=== PATIENT | female | born 1965 | race Asian ===

== ENCOUNTER 2016-09-21 16:36 | Outpatient (CLI) | payer OTHER ==
--- NOTE | 2016-09-22 12:03 | Diagnostic Imaging Report ---
Chest x-ray single view History: Cough The heart size is normal. No focal pulmonary parenchymal processes. No hilar or mediastinal abnormalities. Impression: No acute abnormalities
== END 2016-09-21 16:50 | disposition home or self-care (01) ==
LOC: RAD 16:36
PROVIDERS: ATTEND Specialist
DX: R05 Cough (principal)
CPT/HCPCS: 71010-TC

== ENCOUNTER 2017-05-23 11:57 | Inpatient (IN) | payer OTHER ==
--- NOTE | 2017-05-23 12:31 | ED Physician Chart ---
ED Chief Complaint/HPI - Patient Information Date Seen:: 05/23/17 Time Seen:: 12:20 Chief Complaint:: pain left upper leg History of Present Illness:: Patient has had pain in her left upper leg for 5-6 days and lesser pain in the right upper leg. She denies trauma. She flew back from the [facility] 2016. No chest pain or shortness of breath. Patient is on Norvasc 10 mg a day and atenolol 25 mg a day. She has had a potassium as low as 2.6 in the past. Allergies:: Allergies Allergy/AdvReac Type Severity Reaction Status Date / Time No Known Allergies Allergy Verified 05/23/17 12:01 Vitals:: Vital Signs - 8 hr 05/23/17 12:00 Temp 97.4 F HR 87 RR 16 BP 130/79 O2 Sat % 100 Historian:: Patient Review:: Nurse's Note Reviewed ED Review of Systems - Review of Systems General/Constitutional: No fever, No chills Skin: No skin lesions Head: No headache Eyes: No loss of vision ENT: No earache Neck: No neck pain Cardio Vascular: No chest pain Pulmonary: No SOB GI: No nausea, No vomiting G/U: No dysuria, No frequency, No hematuria Musculoskeletal: Bone or joint pain, Muscle pain Endocrine: No polyuria, No polydipsia Psychiatric: No prior psych history Hematopoietic: No bruising, No lymphadenopathy Allergic/Immuno: No urticaria, No angioedema Neurological: No syncope, No focal symptoms ED Past Medical History - Past Medical History Past Medical History: HTN, Asthma/COPD, PUD/GERD, Other (environmental allergies ) Family History: Heart disease, HTN, Other (COPD) Social History: Non Smoker, No Alcohol Surgical History: (2 sections and thyroidectomy) Psychiatricy History: None Medication: Reviewed Family Medical History - Family Member Mother History Unknown: Yes ED Physical Exam - Physical Examination General/Constitutional: Well-developed, well-nourished, Alert, No distress Head: Atraumatic Eyes: Lids, conjuctiva normal, PERRL Skin: Nl inspection, No rash, No skin lesions, No ecchymosis, Well hydrated ENMT: External ears, nose nl, TM canals nl, Nasal exam nl, Lips, teeth, gums nl , Oropharynx nl, Tonsils nl Neck: No nuchal rigidity Respiratory: Nl effort/Exclusion, Clear to Auscultation, No Wheeze/Rhonchi/Rales Cardio Vascular: RRR, No murmur, gallop, rubs, NL S1 S2 GI: No tenderness/rebounding/guarding, No organomegaly, No hernia, Normal BS's, Nondistended, No mass/bruits, No McBurney tenderness : No CVA tenderness Other Extremities comments:: Mild tenderness both thighs; no redness or swelling of the thighs Neuro/Psych: Alert/oriented, No focal deficits Misc: Normal back ED Labs/Radiology/EKG Results - EKG Interpretations Rate & Rhythm: NSR; rate 61; normal axis; T wave flattening V1-V3 ED Septic Shock - . Is Septic Shock (SBP<90, OR Lactate>4 mmol\L) present?: No - <6hrs of presentation: Vital Signs: Vital Signs - 8 hr // 12:00 Temp 97.4 F HR 87 RR 16 BP 130/79 O2 Sat % 100 ED Reassessment (Disposition) - Reassessment Reassessment:: Patient will be admitted to telemetry Reassessment Condition:: Unchanged - Diagnosis Diagnosis:: Symptomatic hypokalemia - Aftercare/Follow up Instructions Aftercare/Follow-Up Instructions:: Counseled pt regarding lab results/diagnosis & need follow up - Patient Disposition Admitted to:: Telemetry Spoke to:: Jose Alejandro Singleton Admitting Medical Physician:: Jose Alejandro Singleton Condition at Disposition:: Stable, Unchanged
[2017-05-23 13:02] LABS: % BASOPHILS 0.2 % (0.0-2.0); % EOSINOPHILS 1.7 % (0.0-5.0); % MONOCYTES 7.8 % (2.0-10.0); % NEUTROPHILS 66.3 % (40.0-80.0); HEMOGLOBIN 12.1 gm/dL (12-16); MEAN CELL VOLUME 85.7 fl (81-100); MEAN PLATELET VOLUME 7.5 fl; NEUTROPHILE ABSOLUTE 5.9 Th/cmm (1.8-8.0); PLATELET COUNT 229 Th/cmm (150-400); RED BLOOD COUNT 4.03 Mil/cmm (3.80-5.10); RED CELL DISTRIBUTION WIDTH 15.3 % (11.5-20.0)
[2017-05-23 13:05] LABS: HEMATOCRIT 34.5 % (41.0-60); WHITE BLOOD COUNT 8.9 Th/cmm (4.8-10.8)
[2017-05-23 13:12] LABS: ANION GAP 8.4 (7.0-16.0); BUN - UREA NITROGEN 13 mg/dL (7-25); BUN/CREATININE RATIO 18.6; CALCIUM SERUM 8.6 mg/dL (8.6-10.3); CARBON DIOXIDE 29.6 mEq/L (21.0-31.0); CHLORIDE 106 mEq/L (98-107); CREATININE - SERUM 0.7 mg/dL (0.6-1.2); GLUCOSE 105 mg/dL (70-105); MAGNESIUM 2.2 mg/dL (1.9-2.7); SODIUM SERUM 142 mEq/L (136-145)
--- NOTE | 2017-05-23 13:37 | Diagnostic Imaging Report ---
CHEST X-RAY: 2 views INDICATION: Pleuritis COMPARISON: Chest x-ray 09/21/2016 FINDINGS: There is no focal consolidation or pleural effusions The heart is normal in size. There is mild biapical pleural thickening. Is mild spinal scoliosis. IMPRESSION: No acute cardiopulmonary disease. Mild biapical pleural thickening. No evidence of pneumothorax.
[2017-05-23] MEDS ORDERED: Potassium Chloride Elixir 20 mEq /15 mL UDC GT ONE (13:51)
[2017-05-23 13:52] LABS: CREATINE KINASE MB 2.2 ng/mL (0.6-6.3)
[2017-05-23] MEDS ORDERED: Potassium Chloride 20 mEq ER Tab PO ONE ×2 (14:20→14:29)
[2017-05-23] MEDS ORDERED: KCL 20mEq/100mL Premix 40 MEQ/200 ML PIGGYBACK IV ONE (14:31)
[2017-05-23] MEDS: KCL 20mEq/100mL Premix 20 MEQ/100 ML PIGGYBACK IV SCH ×2 (14:34→16:35)
--- NOTE | 2017-05-23 15:42 | Diagnostic Imaging Report ---
Bilateral lower extremity DVT study HISTORY: Upper leg pain COMPARISON: None Technique: Longitudinal and transverse sonographic images of the bilateral lower extremity veins were obtained with doppler analysis. FINDINGS: There is normal compressibility, augmentation and phasicity of the bilateral common femoral, superficial femoral, popliteal, and posterior tibial veins. No thrombus is visualized. IMPRESSION: No evidence of thrombus within the bilateral lower extremity veins.
[2017-05-23] MEDS ORDERED: FORMOTEROL IH SCH (17:00)
[2017-05-23] MEDS ORDERED: ARO IH SCH (17:00)
[2017-05-23] MEDS ORDERED: MOMETASONE IH SCH (17:00)
[2017-05-23 17:02] VITALS: BP 145/68
[2017-05-23] MEDS: Fluticasone Propionate 0.05mg/Actuation 16gm Nasal Spray NS SCH (17:42)
[2017-05-23] MEDS: Promethazine DM 6.25/15mg-5mL 5 ML SYR PO PRN (21:13)
[2017-05-24 05:10] LABS: ALB/GLOB RATIO 1.4 (1.0-1.8); ALKALINE PHOSPHATASE 76 U/L (34-104); ANION GAP 7.3 (7.0-16.0); BILIRUBIN,TOTAL 0.7 mg/dL (0.3-1.0); BUN - UREA NITROGEN 11 mg/dL (7-25); BUN/CREATININE RATIO 15.7; CALCIUM SERUM 8.4 mg/dL (8.6-10.3); CARBON DIOXIDE 30.7 mEq/L (21.0-31.0); CHLORIDE 108 mEq/L (98-107); CREATININE - SERUM 0.7 mg/dL (0.6-1.2); GLUCOSE 105 mg/dL (70-105); MAGNESIUM 2.2 mg/dL (1.9-2.7); SGOT 22 U/L (13-39); SGPT/ALT 23 U/L (7-52); SODIUM SERUM 144 mEq/L (136-145)
[2017-05-24] MEDS ORDERED: Potassium Chloride 20 mEq ER Tab PO ONE (05:45)
[2017-05-24] MEDS ORDERED: KCL 20mEq/100mL Premix 20 MEQ/100 ML PIGGYBACK IV ONE ×2 (06:18)
[2017-05-24] MEDS ORDERED: Potassium Chloride 40 MEQ, Lidocaine 1% 20mL Vial 25 MG in Sodium Chloride 0.9% 250 ML IV ONE (06:30)
--- NOTE | 2017-05-24 08:47 | History and Physical ---
History of Present Illness - HPI Chief Complaint: left upper leg pain HPI: 51 year old female who presents to [facility] ER for bilateral leg pain for the past 5-6 days. She denies trauma. Patient recently returned from the [facility] on 05/14/17 and while in the ER had an Doppler Venous US negative for DVT. Patient denies chest pain or shortness of breath but on initial labwork had K+ 2.0. Patient has a history of low potassium in the past. She is not currently on diuretics. Denies any diarrhea or nausea/vomiting. Patient was initially given a K-rider of 40meq in the ER. She was subsequently admitted for further evaluation and treatment. Vital Signs: Last Vital Signs Temp 97.6 F 05/24/17 04:00 Pulse 80 05/24/17 04:00 Resp 20 05/24/17 04:00 BP 119/74 05/24/17 04:00 Pulse Ox 99 05/24/17 04:00 Past Medical History Cardiovascular: Report: HTN Pulmonary: Report: Asthma GI: Report: Gastritis Psych: Report: No Pertinent Hx Musculoskeletal: Report: No Pertinent Hx Rheumatologic: Report: No pertinent Hx Infectious Disease: Report: No Pertinent Hx Renal/: Report: No Pertinent Hx Endocrine: Report: No Pertinent Hx Dermatology: Report: No Pertinent Hx - Past Surgical History Past Surgical History: (thyroidectomy) Family Medical History - Family Member Mother History Unknown: Yes Living Status: Hx Family Cancer: Yes (colon cancer) Father Living Status: Other Medical History: CT Social History Smoke: No Alcohol: None Drugs: None Lives: With Family - Medications Home Medications: Home Medication Medication Instructions Recorded Type Atenolol 25 mg PO DAILY 05/23/17 History Fluticasone Propionate Nasal 1 spr NS BID 05/23/17 History [Flonase] Mometasone/Formoterol [Dulera 200 1 loree IH BID 05/23/17 History Mcg/5 Mcg Inhaler] Montelukast [Singulair] 10 mg PO DAILY 05/23/17 History Pantoprazole [Protonix] 40 mg PO DAILY 05/23/17 History amLODIPine Besylate [Norvasc] 10 mg PO DAILY 05/23/17 History - Allergies Allergies/Adverse Reactions: Allergies Allergy/AdvReac Type Severity Reaction Status Date / Time No Known Allergies Allergy Verified 05/23/17 12:01 Review of Systems - Review of Systems Constitutional: Report: No Significant Eyes: Report: No Significant ENT: Report: No Significant Respiratory: Report: No Significant. Denies: SOB with Excertion Cardiovascular: Report: No Significant. Denies: Chest Pain Gastrointestinal: Report: No Significant. Denies: Nausea, Vomiting, Diarrhea Genitourinary: Report: No Significant Musculoskeletal: Report: No Significant Skin: Report: No Significant Neurological: Report: Other (muscle weakness ) Physical Exam - Physical Exam HEENT: Report: Ears Nose Throat within normal limits, Pharnyx within normal limits Neck: Report: Within normal limits Cardiovascular Systems: Report: +s1/s2 noted, Regular, Rate and Rhythm Respiratory: Report: Breath Sounds are within normal limits Abdomen: Report: Non-tender to palpation Extremities: Report: Non-tender to palpation. Skin: Report: Color of skin is within normal limits Neuro/Psych: Report: Mood affect is within normal limits - Lab Results All Lab Results last 24 hours: Laboratory Last Values WBC 8.9 Th/cmm (4.8-10.8) D 05/23/17 12:50 RBC 4.03 Mil/cmm (3.80-5.10) 05/23/17 12:50 Hgb 12.1 gm/dL (12-16) 05/23/17 12:50 Hct 34.5 % (41.0-60) L D 05/23/17 12:50 MCV 85.7 fl (81-100) 05/23/17 12:50 MCH 30.0 pg (27.0-31.0) 05/23/17 12:50 MCHC Differential 35.0 pg (28.0-36.0) 05/23/17 12:50 RDW 15.3 % (11.5-20.0) 05/23/17 12:50 Plt Count 229 Th/cmm (150-400) 05/23/17 12:50 MPV 7.5 fl 05/23/17 12:50 Neutrophils % 66.3 % (40.0-80.0) 05/23/17 12:50 Lymphocytes % 24.0 % (20.0-50.0) 05/23/17 12:50 Monocytes % 7.8 % (2.0-10.0) 05/23/17 12:50 Eosinophils % 1.7 % (0.0-5.0) 05/23/17 12:50 Basophils % 0.2 % (0.0-2.0) 05/23/17 12:50 Sodium 144 mEq/L (136-145) 05/24/17 04:23 Potassium 2.0 mEq/L (3.5-5.1) L* 05/24/17 04:23 Chloride 108 mEq/L (98-107) H 05/24/17 04:23 Carbon Dioxide 30.7 mEq/L (21.0-31.0) 05/24/17 04:23 Anion Gap 7.3 (7.0-16.0) 05/24/17 04:23 BUN 11 mg/dL (7-25) 05/24/17 04:23 Creatinine 0.7 mg/dL (0.6-1.2) 05/24/17 04:23 Est GFR ( Amer) > 60.0 ml/min (>90) 05/24/17 04:23 Est GFR (Non-Af Amer) > 60.0 ml/min 05/24/17 04:23 BUN/Creatinine Ratio 15.7 05/24/17 04:23 Glucose 105 mg/dL (70-105) 05/24/17 04:23 Calcium 8.4 mg/dL (8.6-10.3) L 05/24/17 04:23 Magnesium 2.2 mg/dL (1.9-2.7) 05/24/17 04:23 Total Bilirubin 0.7 mg/dL (0.3-1.0) 05/24/17 04:23 AST 22 U/L (13-39) 05/24/17 04:23 ALT 23 U/L (7-52) 05/24/17 04:23 Alkaline Phosphatase 76 U/L (34-104) 05/24/17 04:23 Creatine Kinase 278 U/L (30-223) H 05/23/17 12:50 CK-MB (CK-2) 2.2 ng/mL (0.6-6.3) 05/23/17 12:50 Total Protein 6.7 gm/dL (6.0-8.3) 05/24/17 04:23 Albumin 3.9 gm/dL (3.7-5.3) 05/24/17 04:23 Globulin 2.8 gm/dL 05/24/17 04:23 Albumin/Globulin Ratio 1.4 (1.0-1.8) 05/24/17 04:23 POC Ur Test Negative 05/23/17 12:56 Laboratory Results - last 24 hr 05/24/17 04:23 Sodium 144 Potassium 2.0 L* Chloride 108 H Carbon Dioxide 30.7 Anion Gap 7.3 BUN 11 Creatinine 0.7 Est GFR ( Amer) > 60.0 Est GFR (Non-Af Amer) > 60.0 BUN/Creatinine Ratio 15.7 Glucose 105 Calcium 8.4 L Magnesium 2.2 Total Bilirubin 0.7 AST 22 ALT 23 Alkaline Phosphatase 76 Total Protein 6.7 Albumin 3.9 Globulin 2.8 Albumin/Globulin Ratio 1.4 - Assessment Assessment: hypokalemia .... will order continue K+ supplementation. Will order thyroid panel, urine potasssium, Magnesium, Calcium, repeat labwork today. renal US, MRI head. renal consult. - Plan Plan: hypokalemia .... will order continue K+ supplementation. Will order thyroid panel, urine potasssium, Magnesium, Calcium, repeat labwork today. renal US, MRI head. renal consult.
[2017-05-24] MEDS ORDERED: Albuterol Nebulizer 2.5mg/3mL HHN SCH (09:00)
[2017-05-24] MEDS: Fluticasone Propionate 0.05mg/Actuation 16gm Nasal Spray NS SCH ×2 (09:00→17:31)
[2017-05-24] MEDS ORDERED: Budesonide 0.5 Mg/2 mL Ud HHN SCH (09:00)
[2017-05-24] MEDS: Pantoprazole 40 mg EC Tab PO SCH (09:06)
[2017-05-24] MEDS ORDERED: KCL 20mEq/100mL Premix 20 MEQ/100 ML PIGGYBACK IV SCH (09:15)
[2017-05-24] MEDS ORDERED: CALCIUM GLUBIONATE 1.8 GM/5 ML PO SCH (09:15)
[2017-05-24 09:38] LABS: T4 TOTAL 9.35 ug/dl (6.09-12.23)
[2017-05-24] MEDS ORDERED: IOHEXOL 300MG/ML 50 ML VIAL IVP ONE (10:30)
[2017-05-24 11:04] LABS: CALCIUM SERUM 8.4 mg/dL (8.6-10.3); MAGNESIUM 2.2 mg/dL (1.9-2.7)
[2017-05-24] MEDS ORDERED: Calcium Gluconate 1 GM in Sodium Chloride 0.9% 100 ML IVP ONE (11:15)
[2017-05-24] MEDS ORDERED: POTASSIUM CHLORIDE IV PRN ×2 (11:16→17:12)
[2017-05-24] MEDS ORDERED: SODIUM CHLORIDE 0.9% IV PRN ×2 (11:16→17:12)
[2017-05-24] MEDS ORDERED: LIDOCAINE IV PRN ×2 (11:16→17:12)
[2017-05-24] MEDS ORDERED: Potassium Chloride 40 MEQ, Lidocaine 1% 20mL Vial 25 MG in Sodium Chloride 0.9% 250 ML IV PRN (11:17)
--- NOTE | 2017-05-24 11:32 | Diagnostic Imaging Report ---
Head CT without and with intravenous contrast Indication: Hypokalemia Comparison: None Technique: Axial images were obtained from the vertex to the skull base before and following administration of IV contrast. Coronal reconstructions were made. Total DLP: 1149, CTDI70 FINDINGS: Images of the brain obtained without contrast demonstrate no acute hemorrhage. No mass lesions identified. The ventricles and basal cisterns are patent. The bhatti-white matter differentiation is preserved. There is no mass effect or midline shift. Following contrast administration, no abnormal enhancement is apparent. No skull fractures identified. No soft tissue swelling. The paranasal sinuses are clear. IMPRESSION: No acute intracranial abnormality. No evidence of an enhancing mass lesion.
--- NOTE | 2017-05-24 12:58 | Diagnostic Imaging Report ---
Renal ultrasound HISTORY: Hypokalemia. COMPARISON: None Technique: Sonography of the kidneys and urinary bladder was performed in multiple planes. FINDINGS: The right kidney measures 10.6 x 4.9 cm demonstrating mild hydronephrosis. No evidence of focal lesions or sonographic evidence of renal stones. The left kidney measures 11.9 x 5.8 cm demonstrating mild hydronephrosis. A left renal sonolucent lesion is noted measuring 1.4 cm along the inferior pole. No evidence of elevated postsurgical residual bladder cuba. No evidence of urinary bladder wall thickening. IMPRESSION: Mild bilateral hydronephrosis. Etiology uncertain. No sonographic evidence of renal stones. Consider follow-up CT examination if warranted. No evidence of elevated postvoid residual bladder volumes. 1.4 cm left renal cyst.
[2017-05-24] MEDS: Potassium Chloride 40 MEQ in Sodium Chloride 0.45% 1,000 ML IV SCH (15:34)
--- NOTE | 2017-05-24 21:19 | Consultation ---
DATE OF CONSULTATION: 05/24/2017 ATTENDING: Dr. Linette Singleton. DOUGH MIXER: Zoltan Mackenzie M.D. REASON FOR CONSULTATION: Worsening hypokalemia. HISTORY OF PRESENT ILLNESS: This is a 51-year-old U[place] with past medical history of hypokalemia, who came in because of bilateral thigh pain and weakness. Five days prior to admission, the patient experienced bilateral thigh pain. She also had difficult to flexing her legs. A few hours prior to admission, her condition worsened. Her pain this time was associated with progressive weakness. She then proceeded to the Emergency Room. Potassium level was 2. She received a K-rider and IV fluids with potassium. Her potassium level persistent at 2. She had no nausea and vomiting, diarrhea, no diuresis. She denied eating any liquorish, being on insulin or diuretics. PAST MEDICAL HISTORY: 1. She does have a history of hypokalemia in the past, but good response to potassium replacement. 2. Essential hypertension. 3. Bronchial asthma. CURRENT MEDICATIONS: She is currently on albuterol, amlodipine, budesonide, diphenhydramine, fluticasone, montelukast, pantoprazole, promethazine. ALLERGIES: No known drug allergies. SOCIAL HISTORY: No history of alcohol or tobacco abuse. She currently works as a registered nurse. FAMILY HISTORY: Noncontributory to present illness. REVIEW OF SYSTEMS: CONSTITUTIONAL: She continues to have adequate appetite. No fever, no chills. However, she did complain of progressive weakness involving her lower thighs. HEENT: No mention of headaches, no dizziness. CARDIORESPIRATORY: No chest pain, palpitations, diaphoresis or cough. She has a history of hypertension. GASTROINTESTINAL: No nausea or vomiting, abdominal pain or cramping, hematemesis, melena, hematochezia, nor diarrhea. ENDOCRINE: No history of diabetes, thyroid abnormalities, dyslipidemia. GENITOURINARY: No history of kidney failure. No dysuria or hematuria. She does have a history of hypokalemia in the past. NEUROPSYCHIATRIC: No syncopal episode nor seizure activity. EXTREMITIES: Lower extremities feel better. PHYSICAL EXAMINATION: VITAL SIGNS: Temperature is 119/74, pulse 80, temperature 97.6 degrees. SKIN: Good turgor, warm. No rash, no jaundice appreciated. HEENT: Head normocephalic, atraumatic. EYES: Extraocular muscles intact. Pupils equal, round, reactive to light and accommodates. Anicteric sclerae, pale conjunctivae. Nose, midline nasal septum. Mouth, moist mucosa with adequate dentition. NECK: Supple. No adenopathy, no thyromegaly, no bruits. Trachea palpated in the midline. CHEST AND CVS: S1, S2. No rub, murmur nor gallop appreciated. Point of maximal impulse fifth intercostal space, left midclavicular line. No abdominal or femoral bruits appreciated. LUNGS: Equal expansion. No use of accessory muscles. No supraclavicular retractions, decreased breath sounds, clear to auscultation without any wheeze. BREASTS: Symmetrical, without any discharge. ABDOMEN: Flat, soft, positive for bowel sounds. No bruits either diastolic or systolic. RECTAL: Deferred. GENITOURINARY: Deferred. EXTREMITIES: No evidence of any edema, cyanosis, nor clubbing with palpable femoral, popliteal, dorsalis pedis pulses. NEUROLOGIC: The patient is alert, verbal, oriented. Motor; lower extremities I would say bilaterally 4/5; upper extremities 5/5. LABORATORY DATA: Revealed sodium 144, potassium 2, chloride 108, bicarbonate 30.7, BUN 11, creatinine 0.7, glucose 105, calcium 8.4, magnesium 2.2, TSH is 1.24. Free thyroxine is normal at 9.35. Lower extremity ultrasound negative for DVT. Chest x-ray, no acute disease. Renal ultrasound showed mild bilateral hydronephrosis, but no stones and a benign left renal cyst and head CT was negative for any acute infarct. IMPRESSION: 1. Chronic hypokalemia. Possible diagnosis would include Dixie's disease, intake of medication such as beta2-agonist or cisplatin, but I doubt this, sodium wasting diseases such as Nabila, Bartter, or Gitelman syndrome, but these are congenital diseases. 2. Pain and weakness, possibly due to hypokalemic periodic paralysis. 3. Essential hypertension. 4. Bronchial asthma. PLAN: 1. Continue to replace potassium. 2. A 24-hour urine for sodium and potassium. 3. Urine sodium, potassium, and chloride. 4. Aldosterone, cortisol, and TSH levels. 5. Continue to follow up electrolytes. [facility]# [id number]
[2017-05-24] MEDS: Promethazine DM 6.25/15mg-5mL 5 ML SYR PO PRN (22:27)
[2017-05-25] MEDS: Potassium Chloride 40 MEQ in Sodium Chloride 0.45% 1,000 ML IV SCH ×2 (03:52→17:58)
[2017-05-25 04:32] LABS: ANION GAP 6.7 (7.0-16.0); BUN - UREA NITROGEN 11 mg/dL (7-25); BUN/CREATININE RATIO 18.3; CALCIUM SERUM 8.4 mg/dL (8.6-10.3); CARBON DIOXIDE 27.2 mEq/L (21.0-31.0); CHLORIDE 106 mEq/L (98-107); CREATININE - SERUM 0.6 mg/dL (0.6-1.2); GLUCOSE 127 mg/dL (70-105); SODIUM SERUM 137 mEq/L (136-145)
[2017-05-25 04:39] LABS: POTASSIUM SERUM 2.9 mEq/L (3.5-5.1)
[2017-05-25] MEDS ORDERED: KCL 20mEq/100mL Premix 20 MEQ/100 ML PIGGYBACK IV SCH (05:05)
[2017-05-25] MEDS ORDERED: Potassium Chloride 40 MEQ, Lidocaine 1% 20mL Vial 25 MG in Sodium Chloride 0.9% 250 ML IV ONE (06:00)
[2017-05-25] MEDS ORDERED: Calcium Gluconate 1 GM in Sodium Chloride 0.9% 100 ML IV ONE (07:42)
--- NOTE | 2017-05-25 07:42 | General Progress Note ---
Subjective - Review of Systems Service Date: 05/25/17 Subjective: Patient is awake,alert. No chest pain, no palpitations. For evaluation by endocrinology today. given 40meq supplementation. Objective - Results Result Diagrams: 05/23/17 12:50 05/25/17 04:06 Recent Labs: Laboratory Last Values WBC 8.9 Th/cmm (4.8-10.8) D 05/23/17 12:50 RBC 4.03 Mil/cmm (3.80-5.10) 05/23/17 12:50 Hgb 12.1 gm/dL (12-16) 05/23/17 12:50 Hct 34.5 % (41.0-60) L D 05/23/17 12:50 MCV 85.7 fl (81-100) 05/23/17 12:50 MCH 30.0 pg (27.0-31.0) 05/23/17 12:50 MCHC Differential 35.0 pg (28.0-36.0) 05/23/17 12:50 RDW 15.3 % (11.5-20.0) 05/23/17 12:50 Plt Count 229 Th/cmm (150-400) 05/23/17 12:50 MPV 7.5 fl 05/23/17 12:50 Neutrophils % 66.3 % (40.0-80.0) 05/23/17 12:50 Lymphocytes % 24.0 % (20.0-50.0) 05/23/17 12:50 Monocytes % 7.8 % (2.0-10.0) 05/23/17 12:50 Eosinophils % 1.7 % (0.0-5.0) 05/23/17 12:50 Basophils % 0.2 % (0.0-2.0) 05/23/17 12:50 Sodium 137 mEq/L (136-145) 05/25/17 04:06 Potassium 2.9 mEq/L (3.5-5.1) L* 05/25/17 04:06 Chloride 106 mEq/L (98-107) 05/25/17 04:06 Carbon Dioxide 27.2 mEq/L (21.0-31.0) 05/25/17 04:06 Anion Gap 6.7 (7.0-16.0) L 05/25/17 04:06 BUN 11 mg/dL (7-25) 05/25/17 04:06 Creatinine 0.6 mg/dL (0.6-1.2) 05/25/17 04:06 Est GFR ( Amer) > 60.0 ml/min (>90) 05/25/17 04:06 Est GFR (Non-Af Amer) > 60.0 ml/min 05/25/17 04:06 BUN/Creatinine Ratio 18.3 05/25/17 04:06 Glucose 127 mg/dL (70-105) H 05/25/17 04:06 Calcium 8.4 mg/dL (8.6-10.3) L 05/25/17 04:06 Magnesium 2.2 mg/dL (1.9-2.7) 05/24/17 08:48 Total Bilirubin 0.7 mg/dL (0.3-1.0) 05/24/17 04:23 AST 22 U/L (13-39) 05/24/17 04:23 ALT 23 U/L (7-52) 05/24/17 04:23 Alkaline Phosphatase 76 U/L (34-104) 05/24/17 04:23 Creatine Kinase 278 U/L (30-223) H 05/23/17 12:50 CK-MB (CK-2) 2.2 ng/mL (0.6-6.3) 05/23/17 12:50 Total Protein 6.7 gm/dL (6.0-8.3) 05/24/17 04:23 Albumin 3.9 gm/dL (3.7-5.3) 05/24/17 04:23 Globulin 2.8 gm/dL 05/24/17 04:23 Albumin/Globulin Ratio 1.4 (1.0-1.8) 05/24/17 04:23 Thyroxine (T4) 9.35 ug/dl (6.09-12.23) 05/24/17 08:48 TSH 1.24 uIU/ml (0.34-5.60) 05/24/17 04:13 Ur Random Sodium 81 mmol/L 05/24/17 22:15 Ur Random Potassium 29.0 mmol/L 05/24/17 22:15 POC Ur Test Negative 05/23/17 12:56 - Physical Exam Vitals and I&O: Vital Signs Temp 98.0 F 05/25/17 04:00 Pulse 78 05/25/17 04:00 Resp 18 05/25/17 04:00 BP 114/65 05/25/17 04:00 Pulse Ox 98 05/25/17 04:00 Intake & Output 05/24/17 05/25/17 05/25/17 18:59 06:59 18:59 Intake Total 1200 1557.5 Output Total 1250 Balance 1200 307.5 Weight (lbs) 51.71 kg 51.71 kg Intake: Intake, IV Amount 1197.5 Potassium Chloride 40 meq 922.5 In Sodium Chloride 0.45% 1,000 ml @ 75 mls/hr IV .[id number] [facility] Rx#: [id number] Oral 1200 360 Output: Urine 1250 Other: # Voids 4 # Bowel Movements 1 Active Medications: Current Medications Amlodipine Besylate (Norvasc) 10 mg PO HS HARPREET Stop: 07/22/17 20:59 Last Admin: 05/24/17 22:25 Dose: 10 mg Budesonide (Pulmicort) 0.5 mg HHN BIDRT HARPREET Stop: 07/23/17 08:59 Diphenhydramine HCl (Benadryl) 25 mg PO HS PRN PRN Reason: Insomnia Stop: 07/22/17 20:23 Last Admin: 05/24/17 22:25 Dose: 25 mg Fluticasone Propionate (Flonase) 1 spr NS BID HARPREET Stop: 07/22/17 16:59 Last Admin: 05/24/17 17:31 Dose: 1 spr Potassium Chloride 40 meq/ (Sodium Chloride) 1,020 mls @ 75 mls/hr IV .[id number] HARPREET Stop: 07/23/17 14:14 Last Admin: 05/25/17 03:52 Dose: 75 mls/hr Potassium Chloride 40 meq/Lidocaine HCl 25 mg/ Sodium Chloride 272.5 mls @ 68 mls/hr IV X1 ONE Stop: 05/25/17 10:00 Montelukast Sodium (Singulair) 10 mg PO DAILY HARPREET Stop: 07/23/17 08:59 Last Admin: 05/24/17 09:06 Dose: 10 mg Pantoprazole Sodium (Protonix) 40 mg PO DAILY HARPREET Stop: 07/23/17 08:59 Last Admin: 05/24/17 09:06 Dose: 40 mg Potassium Chloride (Klor-Con) 40 meq PO DAILY HARPREET Stop: 07/24/17 08:59 Promethazine HCl/Dextromethorphan (Phenergan Dm 6.25/15mg-5 Ml) 10 ml PO Q6HR PRN PRN Reason: Cough Stop: 07/22/17 20:17 Last Admin: 05/24/17 22:27 Dose: 10 ml General: Alert, Oriented x3, No acute distress HEENT: Atraumatic, PERRLA, EOMI Cardiovascular: Regular rate, Normal S1, Normal S2 Lungs: Clear to auscultation Abdomen: Bowel sounds Extremities: no Clubbing, no Cyanosis, no Edema Neurological: Normal gait, Normal speech Assessment/Plan - Assessment Assessment: hypokalemia .... will order continue K+ supplementation. Will order thyroid panel, urine potasssium, Magnesium, Calcium, repeat labwork today. renal US, MRI head. renal consult. - Plan Plan: hypokalemia .... to receive K+ supplementation. repeat CMP today and tomorrow. 24hr urine collection h/o thyroidectomy partial w/ thyroid nodules ... will order thyroid scan mild hydronephrosis noted on renal US CT head negative. hypocalcemia ... will order PTH level, will order endocrinology consult.
[2017-05-25 08:00] LABS: ALB/GLOB RATIO 1.4 (1.0-1.8); ALKALINE PHOSPHATASE 76 U/L (34-104); ANION GAP 8.3 (7.0-16.0); BILIRUBIN,TOTAL 0.5 mg/dL (0.3-1.0); BUN - UREA NITROGEN 12 mg/dL (7-25); CALCIUM SERUM 8.5 mg/dL (8.6-10.3); CARBON DIOXIDE 26.6 mEq/L (21.0-31.0); CHLORIDE 107 mEq/L (98-107); CREATININE - SERUM 0.6 mg/dL (0.6-1.2); GLUCOSE 127 mg/dL (70-105); SGOT 24 U/L (13-39); SGPT/ALT 24 U/L (7-52); SODIUM SERUM 139 mEq/L (136-145)
[2017-05-25 08:03] LABS: POTASSIUM SERUM 2.9 mEq/L (3.5-5.1)
[2017-05-25] MEDS: Pantoprazole 40 mg EC Tab PO SCH (09:06)
[2017-05-25] MEDS ORDERED: Potassium Chloride 20 MEQ, Lidocaine 1% 20mL Vial 25 MG in Sodium Chloride 0.9% 250 ML IV ONE (09:12)
[2017-05-25] MEDS: Fluticasone Propionate 0.05mg/Actuation 16gm Nasal Spray NS SCH ×2 (09:30→16:45)
[2017-05-25] MEDS: Potassium Chloride 20 mEq ER Tab PO SCH (10:38)
[2017-05-25 18:20] LABS: ALB/GLOB RATIO 1.5 (1.0-1.8); ALKALINE PHOSPHATASE 83 U/L (34-104); ANION GAP 7.3 (7.0-16.0); BILIRUBIN,TOTAL 0.6 mg/dL (0.3-1.0); BUN - UREA NITROGEN 9 mg/dL (7-25); CALCIUM SERUM 9.3 mg/dL (8.6-10.3); CARBON DIOXIDE 25.5 mEq/L (21.0-31.0); CHLORIDE 109 mEq/L (98-107); CREATININE - SERUM 0.6 mg/dL (0.6-1.2); GLUCOSE 116 mg/dL (70-105); POTASSIUM SERUM 3.8 mEq/L (3.5-5.1); SGOT 31 U/L (13-39); SGPT/ALT 30 U/L (7-52); SODIUM SERUM 138 mEq/L (136-145)
[2017-05-25] MEDS: Promethazine DM 6.25/15mg-5mL 5 ML SYR PO PRN (22:39)
[2017-05-26 05:55] LABS: ANION GAP 7.7 (7.0-16.0); BUN - UREA NITROGEN 11 mg/dL (7-25); BUN/CREATININE RATIO 15.7; CALCIUM SERUM 8.9 mg/dL (8.6-10.3); CARBON DIOXIDE 24.8 mEq/L (21.0-31.0); CHLORIDE 109 mEq/L (98-107); CREATININE - SERUM 0.7 mg/dL (0.6-1.2); GLUCOSE 96 mg/dL (70-105); POTASSIUM SERUM 3.5 mEq/L (3.5-5.1); SODIUM SERUM 138 mEq/L (136-145)
[2017-05-26] MEDS: Fluticasone Propionate 0.05mg/Actuation 16gm Nasal Spray NS SCH (09:06)
[2017-05-26] MEDS: Pantoprazole 40 mg EC Tab PO SCH (09:06)
[2017-05-26] MEDS: Potassium Chloride 20 mEq ER Tab PO SCH (09:07)
--- NOTE | 2017-05-26 09:39 | Diagnostic Imaging Report ---
Thyroid ultrasound HISTORY: Nodules. Previous left thyroidectomy in 1993. COMPARISON: None Technique: Sonography of the thyroid gland was performed in multiple planes. FINDINGS: The right lobe of the thyroid gland measures 4.3 x 2.1 x 2.3 cm and demonstrates a heterogeneous echotexture with multiple small nodules. The largest is located within the mid right lobe demonstrating primarily cystic components and measuring 4 mm. The thyroid isthmus measures 4 mm. There may be residual left thyroid tissue measuring 1.5 x 1.8 x 1.3 cm. There is suggestion small areas of nodularity in this region. IMPRESSION: Patient reports left thyroidectomy in 1993. There is suggestion of residual left thyroid tissue in this region with small areas of nodularity. If indicated CT with IV contrast were provided for additional detail and assessment. Heterogeneous right lobe of the thyroid gland with subcentimeter nodules the largest measuring 4 mm. Follow-up surveillance ultrasound in 4-6 months is recommended for further assessment/monitoring. Note, the histology of the thyroid nodules cannot be determined sonographically.
--- NOTE | 2017-05-26 09:48 | Diagnostic Imaging Report ---
CT abdomen with intravenous contrast Indication: Hypokalemia, rule out adrenal mass Comparison: None, Technique: Axial images were obtained from the lung bases to the iliac crests with IV contrast. Reconstructions were made. total DLP: 207, CTDI6.5 FINDINGS: The lung bases are clear. No evidence of focal hepatic or splenic lesions. No focal pancreatic lesions. There is a 2 cm nodule arising from the superior aspect the left adrenal gland. Hounsfield units are indeterminate. Bilateral renal cysts are noted largest on the right side measuring 1.5 cm. No evidence of hydronephrosis. Additional low-density lesions are seen too small to characterize but suggestive of cysts. Gallstones are noted. No evidence of free fluid or free air. Osseous structures demonstrate no acute abnormalities. IMPRESSION: 2 cm indeterminate left adrenal nodule. This may possibly represent an adenoma or other mass lesions. A follow-up CT scan without IV contrast would also provide for additional detail and assessment. Gallstones. Bilateral renal cysts. Final results were demonstrated to the referring inpatient team on 05/26/2017.
--- NOTE | 2017-05-26 10:59 | General Progress Note ---
Subjective - Review of Systems Service Date: 05/26/17 Subjective: assymtomatic bp controlled Objective - Results Result Diagrams: 05/23/17 12:50 05/26/17 05:10 Recent Labs: Laboratory Last Values WBC 8.9 Th/cmm (4.8-10.8) D 05/23/17 12:50 RBC 4.03 Mil/cmm (3.80-5.10) 05/23/17 12:50 Hgb 12.1 gm/dL (12-16) 05/23/17 12:50 Hct 34.5 % (41.0-60) L D 05/23/17 12:50 MCV 85.7 fl (81-100) 05/23/17 12:50 MCH 30.0 pg (27.0-31.0) 05/23/17 12:50 MCHC Differential 35.0 pg (28.0-36.0) 05/23/17 12:50 RDW 15.3 % (11.5-20.0) 05/23/17 12:50 Plt Count 229 Th/cmm (150-400) 05/23/17 12:50 MPV 7.5 fl 05/23/17 12:50 Neutrophils % 66.3 % (40.0-80.0) 05/23/17 12:50 Lymphocytes % 24.0 % (20.0-50.0) 05/23/17 12:50 Monocytes % 7.8 % (2.0-10.0) 05/23/17 12:50 Eosinophils % 1.7 % (0.0-5.0) 05/23/17 12:50 Basophils % 0.2 % (0.0-2.0) 05/23/17 12:50 Sodium 138 mEq/L (136-145) 05/26/17 05:10 Potassium 3.5 mEq/L (3.5-5.1) 05/26/17 05:10 Chloride 109 mEq/L (98-107) H 05/26/17 05:10 Carbon Dioxide 24.8 mEq/L (21.0-31.0) 05/26/17 05:10 Anion Gap 7.7 (7.0-16.0) 05/26/17 05:10 BUN 11 mg/dL (7-25) 05/26/17 05:10 Creatinine 0.7 mg/dL (0.6-1.2) 05/26/17 05:10 Est GFR ( Amer) > 60.0 ml/min (>90) 05/26/17 05:10 Est GFR (Non-Af Amer) > 60.0 ml/min 05/26/17 05:10 BUN/Creatinine Ratio 15.7 05/26/17 05:10 Glucose 96 mg/dL (70-105) 05/26/17 05:10 Calcium 8.9 mg/dL (8.6-10.3) 05/26/17 05:10 Magnesium 2.0 mg/dL (1.9-2.7) 05/25/17 04:06 Total Bilirubin 0.6 mg/dL (0.3-1.0) 05/25/17 17:54 AST 31 U/L (13-39) 05/25/17 17:54 ALT 30 U/L (7-52) 05/25/17 17:54 Alkaline Phosphatase 83 U/L (34-104) 05/25/17 17:54 Creatine Kinase 278 U/L (30-223) H 05/23/17 12:50 CK-MB (CK-2) 2.2 ng/mL (0.6-6.3) 05/23/17 12:50 Total Protein 6.9 gm/dL (6.0-8.3) 05/25/17 17:54 Albumin 4.1 gm/dL (3.7-5.3) 05/25/17 17:54 Globulin 2.8 gm/dL 05/25/17 17:54 Albumin/Globulin Ratio 1.5 (1.0-1.8) 05/25/17 17:54 Thyroxine (T4) 9.35 ug/dl (6.09-12.23) 05/24/17 08:48 TSH 3.27 uIU/ml (0.34-5.60) 05/26/17 05:10 Total Cortisol 2.8 05/24/17 04:13 Ur Random Sodium 81 mmol/L 05/24/17 22:15 Ur Random Potassium 25.0 mmol/L 05/25/17 22:15 Urine Collection Time 24 hours 05/25/17 22:15 Urine Total Volume 4800 ml 05/25/17 22:15 Ur Potassium 24 Hour 120.0 mmol/24h (25.0-125.0) 05/25/17 22:15 POC Ur Test Negative 05/23/17 12:56 - Physical Exam Vitals and I&O: Vital Signs Temp 98.0 F 05/26/17 10:14 Pulse 81 05/26/17 10:14 Resp 18 05/26/17 10:14 BP 122/81 05/26/17 10:14 Pulse Ox 99 05/26/17 10:14 Intake & Output 05/25/17 05/26/17 05/26/17 18:59 06:59 18:59 Intake Total 1520 300 Balance 1520 300 Weight (lbs) 51.71 kg 51.256 kg Intake: Intake, IV Amount 1020 Potassium Chloride 40 meq 1020 In Sodium Chloride 0.45% 1,000 ml @ 75 mls/hr IV .[id number] [facility] Rx#: [id number] Oral 500 300 Other: # Voids 4 4 # Bowel Movements 0 Active Medications: Current Medications Amlodipine Besylate (Norvasc) 10 mg PO HS [facility] Stop: 07/22/17 20:59 Last Admin: 05/25/17 21:17 Dose: 10 mg Atenolol (Tenormin) 25 mg PO DAILY [facility] Stop: 07/24/17 09:14 Last Admin: 05/26/17 09:07 Dose: 25 mg Budesonide (Pulmicort) 0.5 mg HHN BIDRT [facility] Stop: 07/23/17 08:59 Diphenhydramine HCl (Benadryl) 25 mg PO HS PRN PRN Reason: Insomnia Stop: 07/22/17 20:23 Last Admin: 05/25/17 22:38 Dose: 25 mg Fluticasone Propionate (Flonase) 1 spr NS BID [facility] Stop: 07/22/17 16:59 Last Admin: 05/26/17 09:06 Dose: 1 spr Potassium Chloride 40 meq/ (Sodium Chloride) 1,020 mls @ 75 mls/hr IV .[id number] [facility] Stop: 07/23/17 14:14 Last Admin: 05/25/17 17:58 Dose: 75 mls/hr Montelukast Sodium (Singulair) 10 mg PO DAILY [facility] Stop: 07/23/17 08:59 Last Admin: 05/26/17 09:07 Dose: 10 mg Pantoprazole Sodium (Protonix) 40 mg PO DAILY [facility] Stop: 07/23/17 08:59 Last Admin: 05/26/17 09:06 Dose: 40 mg Potassium Chloride (Klor-Con) 40 meq PO DAILY [facility] Stop: 07/24/17 08:59 Last Admin: 05/26/17 09:07 Dose: 40 meq Promethazine HCl/Dextromethorphan (Phenergan Dm 6.25/15mg-5 Ml) 10 ml PO Q6HR PRN PRN Reason: Cough Stop: 07/22/17 20:17 Last Admin: 05/25/17 22:39 Dose: 10 ml Spironolactone (Aldactone) 50 mg PO BID [facility] Stop: 07/24/17 16:59 Last Admin: 05/26/17 09:06 Dose: 50 mg General: Alert, Oriented x3, No acute distress HEENT: Atraumatic, PERRLA, EOMI Cardiovascular: Regular rate, Normal S1, Normal S2 Lungs: Clear to auscultation Abdomen: Bowel sounds Extremities: no Clubbing, no Cyanosis, no Edema Neurological: Normal gait, Normal speech Assessment/Plan - Problem List Patient Problems: All Active Problems left adrenal nodule (Acute) left adrenal nodule (Acute)
--- NOTE | 2017-05-27 03:17 | Progress Notes ---
DATE: 05/25/2017 SUBJECTIVE: This is a 51-year-old patient who was brought in here because of problems associated with hypokalemia. HISTORY OF PRESENT ILLNESS: This patient had recurrent episodes of hypokalemia for a period of almost 10 years. She was followed initially by her primary care physician, ____ at one point prior to administration of blood pressure medication. She has a blood pressure of 200, which is related to stress initially and has been refusing to take medication for blood pressure, but because of the presence of persistent hypertension in this patient, she was subsequently started on atenolol 25 mg and Norvasc 10 mg daily, which adequately controlled her blood pressure, but having noted to have this persistent on and off problems with hypokalemia, usually her potassium comes down below 3.5. Currently, she was brought in here because of pain of the thigh, which had been related to and worried about a possibility of pus, thrombophlebitis by this because of a long trip that she had taken from the [facility] coming back here from vacation which is approximately 13-14 hours. PHYSICAL EXAMINATION: VITAL SIGNS: At this time her blood pressure 114/65, temperature is 98, pulse rate of 78, and respiratory rate of 18. CHEST: Clear to auscultation. HEART: Regular sinus. ABDOMEN: Soft. Bowel sounds are present. No organ enlargement. EXTREMITIES: No edema both lower extremities. LABORATORY STUDIES: Reviewed. The most recent 139 sodium, potassium 2.9, chloride of 107, CO2 of 26, BUN of 12, creatinine of 0.6, 127 glucose, calcium of 8.2, magnesium is 2.0, total bilirubin is 0.5. The rest of the studies this patient did have CT of the head, which was normal. Renal ultrasound, unfortunately nothing much mentioned above the adrenal which are top of the kidneys. At the present time, there is some degree of suggestion of possibility of mild degree of hydronephrosis, unilateral, although clinically does not show any evidence of this at the present time. MEDICATIONS: Currently, she is taking 40 mEq of potassium and K-Chlor 40 mEq p.o. daily and intermittent administration of potassium chloride, which she is taking a total of 64 ____ day. IMPRESSION: Hypokalemia, etiology is unclear at the present time and highly suspicious of the possibility of hyperaldosteronism in this patient, which may result from the presence of either hyperplasia of the adrenals or tumor of the adrenal gland. We will have to get serum aldosterone on this patient and subsequently start this patient on aldosterone blocking agents in the form of Aldactone, which I will start the patient on 50 mg 2 times a day, continue potassium supplementation, and agree with the potassium excretion studies, we will need renin levels in this patient, aldosterone level on this patient. Serum thyroxine should be determined, which could be also etiology of hypokalemia in this patient as the thyroxine level is elevated. We will follow this patient closely with you. She will probably need a CAT scan of the abdomen looking specifically for the presence of adrenal tumor or hyperplasia. [facility]# [id number]
--- NOTE | 2017-05-27 20:15 | Discharge Summary ---
DATE OF DISCHARGE: 05/26/2017 PRELIMINARY DIAGNOSES: 1. Hypokalemia. 2. Hypocalcemia. 3. Hypertension. 4. Gastroesophageal reflux disease. 5. Status post thyroidectomy. 6. Mild hydronephrosis bilaterally. DISCHARGE DIAGNOSES: 1. Hypokalemia, now improved. 2. Hypocalcemia, now improved. 3. Hypertension. 4. Gastroesophageal reflux disease. 5. Status post thyroidectomy. 6. Mild hydronephrosis bilaterally. BRIEF HISTORY OF PRESENT ILLNESS: This is a 51-year-old female, who presents to [facility] ER for bilateral lower legs pain for the past 5-6 days. Denies any trauma. The patient recently returned from [facility] on 05/14/2017 and while in the ER had a Doppler venous ultrasound which was negative for DVTs. The patient denies any chest pain or shortness of breath, but on initial lab work it was noted to have a potassium of 2.0. The patient has had a history of low potassium in the past, not currently on any diuretics. Denies any diarrhea, nausea or vomiting. She was initially given K-rider in the ER and was subsequently admitted to telemetry for further evaluation and treatment. Her initial lab work, white count was 8.9, hemoglobin 12.1, hematocrit 34.5, platelets 229. Sodium was 144, potassium 2.0, chloride 108, bicarbonate 30.7, BUN 11, creatinine 0.7, glucose 105. AST normal at 22, ALT normal at 23, alkaline phosphatase was also normal at 76. The patient also has noted had an ultrasound; however, lower extremities which were negative for DVT. Chest x-ray was also ordered, which showed no acute disease. HOSPITAL COURSE: The patient improved during her hospital stay, was given potassium supplementation. Calcium was also noted to be low and was subsequently given supplementation as well. As noted, her potassium was 2.0 on 05/23/2017, on 05/24/2017 had increased to 2.6, on 05/25/2017 had increased to 2.9 and then on the day of discharge, on 05/26/2017, her potassium had increased to 3.5. The patient had an ultrasound of her kidneys, which only showed some mild hydronephrosis. CAT scan; however, had also was ordered which returned in no acute disease. The patient did have a CT of her abdomen, which did show a 2-cm indeterminant left adrenal nodule. The patient was seen and evaluated by Nephrology for the low potassium, please see dictated report. The patient was subsequently discharged in stable condition, was to have a followup potassium level in 3-5 days. The patient was given a prescription for oral potassium to be taken daily for the next 3 days as well as a course of spironolactone which was started at the hospital to help retain potassium. The patient was to follow up as an outpatient with endocrinology. [facility]# [id number]
[2017-05-28 13:11] LABS: CA (PTHI) 8.1 mg/dL (8.7-10.2)
[2017-06-01 15:14] LABS: ALDOSTERONE 24 HR URINE <12.00 ug/24 hr (0.00-19.00); ALDOSTERONE, URINE <2.50 ug/L (Not Estab.)
== END 2017-05-26 11:24 | disposition home or self-care (01) | DRG 641 ==
LOC: ER 11:57 → ICU 15:07 → OBSVTOIN 15:07 → INTOOBSV 15:07 → TELE 05-24 20:15
PROVIDERS: ADMIT Family Medicine; ATTEND Family Medicine
DX: E87.6 Hypokalemia (principal); N13.30 Unspecified hydronephrosis; I10 Essential (primary) hypertension; J44.9 Chronic obstructive pulmonary disease, unspecified; K21.9 Gastro-esophageal reflux disease without esophagitis; E83.51 Hypocalcemia; Z82.49 Family history of ischemic heart disease and other diseases of the circulatory system
CPT/HCPCS: 36415-UA; 70470-TC; 71020-TC; 74160-TC; 76536-TC; 76770-TC; 80048-TC; 80053-TC; 81025-TC; 81050-TC; 82088-90; 82310-90; 82310-TC; 82436-90; 82533-90; 82550-TC; 82553; 83735-TC; 83970-90; 84132-TC; 84133-TC; 84300-TC; 84436-TC; 84439-90; 84443-TC; 85025-TC; 93005; 93970-TC-50; G0378; J0610; J2001; J3480; J7040; Q9967; Z7610

== ENCOUNTER 2017-05-30 07:08 | Outpatient (CLI) | payer OTHER ==
[2017-05-30 08:36] LABS: ALB/GLOB RATIO 1.5 (1.0-1.8); ALKALINE PHOSPHATASE 76 U/L (34-104); ANION GAP 9.2 (7.0-16.0); BILIRUBIN,TOTAL 0.6 mg/dL (0.3-1.0); BUN - UREA NITROGEN 16 mg/dL (7-25); CARBON DIOXIDE 27.5 mEq/L (21.0-31.0); CHLORIDE 103 mEq/L (98-107); GLUCOSE 111 mg/dL (70-105); MAGNESIUM 2.6 mg/dL (1.9-2.7); PHOSPHOROUS 4.3 mg/dL (2.5-5.0); POTASSIUM SERUM 4.7 mEq/L (3.5-5.1); SGOT 31 U/L (13-39); SGPT/ALT 44 U/L (7-52); SODIUM SERUM 135 mEq/L (136-145)
== END 2017-05-30 08:15 | disposition home or self-care (01) ==
LOC: LAB 07:08
PROVIDERS: ATTEND Family Medicine
DX: E87.6 Hypokalemia (principal)
CPT/HCPCS: 36415-UA; 80053-TC; 83735-TC; 84100-TC

== ENCOUNTER 2017-06-04 07:03 | Outpatient (CLI) | payer OTHER ==
[2017-06-04 09:04] LABS: ANION GAP 8.7 (7.0-16.0); BUN - UREA NITROGEN 18 mg/dL (7-25); CALCIUM SERUM 9.1 mg/dL (8.6-10.3); CARBON DIOXIDE 25.4 mEq/L (21.0-31.0); CHLORIDE 103 mEq/L (98-107); GLUCOSE 111 mg/dL (70-105); POTASSIUM SERUM 4.1 mEq/L (3.5-5.1); SODIUM SERUM 133 mEq/L (136-145)
== END 2017-06-04 07:30 | disposition home or self-care (01) ==
LOC: LAB 07:03
PROVIDERS: ATTEND Family Medicine
DX: E87.6 Hypokalemia (principal)
CPT/HCPCS: 36415-UA; 80048-TC

== ENCOUNTER 2017-07-12 07:02 | Outpatient (CLI) | payer OTHER ==
[2017-07-12 08:05] LABS: % BASOPHILS 0.7 % (0.0-2.0); % EOSINOPHILS 4.5 % (0.0-5.0); % LYMPHOCYTES 23.1 % (20.0-50.0); % MONOCYTES 5.6 % (2.0-10.0); % NEUTROPHILS 66.1 % (40.0-80.0); HEMATOCRIT 35.7 % (41.0-60); HEMOGLOBIN 12.2 gm/dL (12-16); MEAN CELL VOLUME 88.3 fl (81-100); MEAN CORPUSCULAR HEMOGLOBIN 30.1 pg (27.0-31.0); MEAN CORPUSCULAR HGB CONC 34.1 pg (28.0-36.0); MEAN PLATELET VOLUME 7.7 fl; PLATELET COUNT 217 Th/cmm (150-400); RED BLOOD COUNT 4.04 Mil/cmm (3.80-5.10); RED CELL DISTRIBUTION WIDTH 14.3 % (11.5-20.0); WHITE BLOOD COUNT 7.6 Th/cmm (4.8-10.8)
[2017-07-12 08:24] LABS: ANION GAP 8.1 (7.0-16.0); BUN/CREATININE RATIO 22.3; CALCIUM SERUM 9.6 mg/dL (8.6-10.3); CARBON DIOXIDE 28.4 mEq/L (21.0-31.0); CREATININE - SERUM 1.3 mg/dL (0.6-1.2); POTASSIUM SERUM 4.5 mEq/L (3.5-5.1)
== END 2017-07-12 08:06 | disposition home or self-care (01) ==
LOC: LAB 07:02
PROVIDERS: ATTEND Family Medicine
DX: E87.6 Hypokalemia (principal)
CPT/HCPCS: 36415-UA; 80048-TC; 85025-TC

== ENCOUNTER 2017-07-16 19:00 | Emergency (ER) | payer OTHER ==
--- NOTE | 2017-07-16 20:35 | ED Physician Chart ---
ED Chief Complaint/HPI - Patient Information Date Seen:: 07/16/17 Time Seen:: 20:27 Chief Complaint:: Headache, N/V History of Present Illness:: 51 yo female developed headache, nausea for half day. Vomited once. Right parietal and frontal headache, throbbing, 4-8/10, and chills. At ER, her BP was 143/96 (baseline 130/90). Hypokalemia 2 months ago. History of adrenal adenoma. Last potassium 4.5. Currently taking Aldactone 25mg bid. She has GERD on pantoprazole 40mg qd. An EGD has been scheduled on 07/24/17. A colonoscopy has been scheduled on 07/24/17 due to family history of colon cancer. The patient felt anxious about the pending EGD and colonoscopy, only slept 3 hours the night before. Allergies:: Allergies Allergy/AdvReac Type Severity Reaction Status Date / Time No Known Allergies Allergy Verified 05/23/17 12:01 Vitals:: Vital Signs - 8 hr 07/16/17 19:16 Temp 98.5 F HR 86 RR 16 BP 148/96 O2 Sat % 98 ED Review of Systems - Review of Systems General/Constitutional: Chills Skin: No skin lesions Head: Headache Eyes: No loss of vision Neck: No neck pain Cardio Vascular: No chest pain Pulmonary: No SOB GI: Nausea Musculoskeletal: No bone or joint pain ED Past Medical History - Past Medical History Past Medical History: HTN, PUD/GERD, Thyroid disorder, Other (Adrenal tumor by CT) Social History: Non Smoker, Alcohol, No Drug Use Surgical History: (x2 ), other (Thyroidectomy left) Family Medical History - Family Member Mother History Unknown: Yes Living Status: Hx Family Cancer: Yes (colon cancer) Father Living Status: ED Physical Exam - Physical Examination General/Constitutional: Awake, Alert Head: Atraumatic Other Head comments:: Right occipital tenderness near the greater occipital nerve distribution. Eyes: PERRL, EOMI Skin: No skin lesions ENMT: External ears, nose nl Neck: Full ROM w/o pain Respiratory: Clear to Auscultation, No Wheeze/Rhonchi/Rales Cardio Vascular: RRR, No murmur, gallop, rubs, NL S1 S2 GI: No tenderness/rebounding/guarding Extremities: Full ROM, normal strength in all extremities Neuro/Psych: No focal deficits ED Assessment - Assessment General Assessment: Right greater occipital neuralgia Volume depletion Mild hyponatremia Critical Care Time: 30 min Excludes all billable procedures: Yes This condition life threatening/high prob of deterioration: No Assessment/Comments:: CBC, CMP, UA Pantoprazole Flexeril Reglan Tylenol Discharge home Follow up PCP or return to ER if headache persist or worsen ED Septic Shock - . Is Septic Shock (SBP<90, OR Lactate>4 mmol\L) present?: No - <6hrs of presentation: Vital Signs: Vital Signs - 8 hr 07/16/ 19:16 Temp 98.5 F HR 86 RR 16 BP 148/96 O2 Sat % 98 ED Reassessment (Disposition) - Reassessment Reassessment Condition:: Improved - Aftercare/Follow up Instructions Aftercare/Follow-Up Instructions:: Counseled pt regarding lab results/diagnosis & need follow up, Refer to Discharge Instructions - Patient Disposition Discharge/Transfer:: Home ED Discharge Plan - Patient Disposition Admit/Discharge/Transfer: PT DISCHARGED HOME Instructions: Migraine Headache, [id number] Additional Instructions: FOLLOW U P WITH YOUR REGULAR DOCTOR.
[2017-07-16] MEDS ORDERED: Pantoprazole 40 mg EC Tab PO STA (20:51)
[2017-07-16] MEDS ORDERED: Pantoprazole 40 mg EC Tab PO ONE (20:55)
[2017-07-16 21:09] LABS: % EOSINOPHILS 1.4 % (0.0-5.0); % LYMPHOCYTES 16.7 % (20.0-50.0); % MONOCYTES 2.7 % (2.0-10.0); % NEUTROPHILS 78.2 % (40.0-80.0); HEMATOCRIT 35.6 % (41.0-60); HEMOGLOBIN 12.3 gm/dL (12-16); MEAN CELL VOLUME 88.4 fl (81-100); MEAN CORPUSCULAR HEMOGLOBIN 30.5 pg (27.0-31.0); MEAN CORPUSCULAR HGB CONC 34.5 pg (28.0-36.0); MEAN PLATELET VOLUME 7.6 fl; NEUTROPHILE ABSOLUTE 7.6 Th/cmm (1.8-8.0); PLATELET COUNT 222 Th/cmm (150-400); RED BLOOD COUNT 4.02 Mil/cmm (3.80-5.10); RED CELL DISTRIBUTION WIDTH 14.8 % (11.5-20.0)
[2017-07-16 21:11] LABS: WHITE BLOOD COUNT 9.7 Th/cmm (4.8-10.8)
[2017-07-16 21:24] LABS: ALB/GLOB RATIO 1.4 (1.0-1.8); ALKALINE PHOSPHATASE 56 U/L (34-104); ANION GAP 10.2 (7.0-16.0); BILIRUBIN,TOTAL 0.7 mg/dL (0.3-1.0); BUN - UREA NITROGEN 22 mg/dL (7-25); CALCIUM SERUM 9.6 mg/dL (8.6-10.3); CHLORIDE 103 mEq/L (98-107); GLUCOSE 108 mg/dL (70-105); POTASSIUM SERUM 4.2 mEq/L (3.5-5.1); SGOT 21 U/L (13-39); SGPT/ALT 18 U/L (7-52); SODIUM SERUM 132 mEq/L (136-145)
[2017-07-16] MEDS ORDERED: Sodium Chloride 0.9% 1,000 ML IV ONE (21:30)
[2017-07-16] MEDS ORDERED: Metoclopramide 5 mg/mL 2mL Vial IVP STA (21:32)
[2017-07-16 21:49] LABS: URINE BILIRUBIN NEGATIVE (NEGATIVE); URINE BLOOD SMALL (NEGATIVE); URINE GLUCOSE (UA) NEGATIVE (NEGATIVE); URINE KETONE NEGATIVE (NEGATIVE); URINE PROTEIN NEGATIVE (NEGATIVE); URINE UROBILINOGEN 0.2 E.U./dL (0.2 - 1.0)
[2017-07-16 21:53] LABS: URINE BACTERIA NONE SEEN /hpf (NONE SEEN); URINE COLOR YELLOW; URINE EPITHELIAL CELLS NONE SEEN /lpf (FEW); URINE WBC NONE SEEN /hpf (0-5)
[2017-07-16] MEDS ORDERED: Metoclopramide 5 mg/mL 2mL Vial ONE (21:57)
== END 2017-07-16 23:10 | disposition home or self-care (01) ==
LOC: ER 19:00
DX: M54.81 Occipital neuralgia (principal); E86.9 Volume depletion, unspecified; E87.1 Hypo-osmolality and hyponatremia; I10 Essential (primary) hypertension; K21.9 Gastro-esophageal reflux disease without esophagitis; Z87.11 Personal history of peptic ulcer disease
CPT/HCPCS: 99291; 96374; 36415; 85025; 81001; 80053; J2765; J7030; Z7502; Z7610

== ENCOUNTER 2017-09-20 07:00 | Outpatient (CLI) | payer OTHER ==
[2017-09-20 08:57] LABS: ALB/GLOB RATIO 1.6 (1.0-1.8); ALBUMIN 4.6 gm/dL (3.7-5.3); ALKALINE PHOSPHATASE 40 U/L (34-104); ANION GAP 8.9 (7.0-16.0); BILIRUBIN,TOTAL 0.6 mg/dL (0.3-1.0); BUN - UREA NITROGEN 23 mg/dL (7-25); CALCIUM SERUM 9.5 mg/dL (8.6-10.3); CARBON DIOXIDE 24.5 mEq/L (21.0-31.0); CHLORIDE 101 mEq/L (98-107); CREATININE - SERUM 1.1 mg/dL (0.6-1.2); GFR AFRICAN-AMERICAN > 60.0 ml/min (>90); GFR NON AFRICAN-AMERICAN 55.7 ml/min; GLUCOSE 119 mg/dL (70-105); POTASSIUM SERUM 4.4 mEq/L (3.5-5.1); SGOT 21 U/L (13-39); SGPT/ALT 13 U/L (7-52); SODIUM SERUM 130 mEq/L (136-145); TOTAL PROTEIN,SERUM 7.4 gm/dL (6.0-8.3)
== END 2017-09-20 09:30 | disposition home or self-care (01) ==
LOC: LAB 07:00
DX: E27.9 Disorder of adrenal gland, unspecified (principal)
CPT/HCPCS: 36415-UA; 80053-TC; 82533-90; 83835-90

== ENCOUNTER 2017-12-03 07:44 | Outpatient (CLI) | payer OTHER ==
[2017-12-03 08:25] LABS: ANION GAP 10.1 (7.0-16.0); BUN - UREA NITROGEN 22 mg/dL (7-25); CALCIUM SERUM 9.4 mg/dL (8.6-10.3); CARBON DIOXIDE 26.6 mEq/L (21.0-31.0); CHLORIDE 104 mEq/L (98-107); CREATININE - SERUM 0.8 mg/dL (0.6-1.2); GFR AFRICAN-AMERICAN > 60.0 ml/min (>90); GFR NON AFRICAN-AMERICAN > 60.0 ml/min; GLUCOSE 105 mg/dL (70-105); POTASSIUM SERUM 3.7 mEq/L (3.5-5.1); SODIUM SERUM 137 mEq/L (136-145)
== END 2017-12-03 08:15 | disposition home or self-care (01) ==
LOC: LAB 07:44
DX: E26.9 Hyperaldosteronism, unspecified (principal); I15.9 Secondary hypertension, unspecified
CPT/HCPCS: 36415-UA; 80048-TC

== ENCOUNTER 2018-02-12 08:36 | Outpatient (CLI) | payer OTHER ==
[2018-02-12 08:56] LABS: % BASOPHILS 0.6 % (0.0-2.0); % EOSINOPHILS 2.3 % (0.0-5.0); % LYMPHOCYTES 33.8 % (20.0-50.0); % MONOCYTES 6.9 % (2.0-10.0); % NEUTROPHILS 56.4 % (40.0-80.0); EOSINOPHILE ABSOLUTE 0.2 Th/cmm (0.1-0.4); HEMATOCRIT 38.1 % (41.0-60); LYMPHOCYTE ABSOLUTE 2.4 Th/cmm (1.5-3.0); MEAN CELL VOLUME 88.2 fl (81-100); MEAN PLATELET VOLUME 7.5 fl; MONOCYTE ABSOLUTE 0.5 Th/cmm (0.3-1.0); NEUTROPHILE ABSOLUTE 4.1 Th/cmm (1.8-8.0); PLATELET COUNT 255 Th/cmm (150-400); RED BLOOD COUNT 4.33 Mil/cmm (3.80-5.10); RED CELL DISTRIBUTION WIDTH 13.9 % (11.5-20.0); WHITE BLOOD COUNT 7.2 Th/cmm (4.8-10.8)
[2018-02-12 09:14] LABS: ANION GAP 11.1 (7.0-16.0); BUN - UREA NITROGEN 18 mg/dL (7-25); CALCIUM SERUM 9.4 mg/dL (8.6-10.3); CARBON DIOXIDE 25.7 mEq/L (21.0-31.0); CHLORIDE 105 mEq/L (98-107); CREATININE - SERUM 0.9 mg/dL (0.6-1.2); GFR AFRICAN-AMERICAN > 60.0 ml/min (>90); GFR NON AFRICAN-AMERICAN > 60.0 ml/min; GLUCOSE 114 mg/dL (70-105); POTASSIUM SERUM 3.8 mEq/L (3.5-5.1); SODIUM SERUM 138 mEq/L (136-145)
[2018-02-12 09:21] LABS: INR 0.96 (0.5-1.4)
== END 2018-02-12 08:50 | disposition home or self-care (01) ==
LOC: LAB 08:36
PROVIDERS: ATTEND Family Medicine
DX: D35.00 Benign neoplasm of unspecified adrenal gland (principal)
CPT/HCPCS: 36415-UA; 80048-TC; 85025-TC; 85610-TC; 85730-TC

== ENCOUNTER 2018-03-29 11:01 | Outpatient (CLI) | payer OTHER ==
--- NOTE | 2018-03-30 09:31 | Diagnostic Imaging Report ---
Chest x-ray 2 views HISTORY:Shortness of breath The overall heart size is normal. No focal pulmonary processes. No hilar or mediastinal abnormalities. IMPRESSION: No acute abnormalities.
== END 2018-03-29 11:50 | disposition home or self-care (01) ==
LOC: RAD 11:01
DX: R00.2 Palpitations (principal); R06.02 Shortness of breath; I10 Essential (primary) hypertension; K21.9 Gastro-esophageal reflux disease without esophagitis
CPT/HCPCS: 71046-TC

== ENCOUNTER 2018-03-30 08:01 | Outpatient (CLI) | payer OTHER ==
[2018-03-30 08:59] LABS: % BASOPHILS 0.8 % (0.0-2.0); % EOSINOPHILS 3.1 % (0.0-5.0); % LYMPHOCYTES 23.7 % (20.0-50.0); % MONOCYTES 6.7 % (2.0-10.0); % NEUTROPHILS 65.7 % (40.0-80.0); BASOPHILE ABSOLUTE 0.1 Th/cumm (0-0.2); EOSINOPHILE ABSOLUTE 0.2 Th/cmm (0.1-0.4); HEMATOCRIT 37.3 % (41.0-60); HEMOGLOBIN 12.7 gm/dL (12-16); LYMPHOCYTE ABSOLUTE 1.7 Th/cmm (1.5-3.0); MEAN CELL VOLUME 89.6 fl (81-100); MEAN CORPUSCULAR HEMOGLOBIN 30.6 pg (27.0-31.0); MEAN CORPUSCULAR HGB CONC 34.1 pg (28.0-36.0); MEAN PLATELET VOLUME 7.7 fl; MONOCYTE ABSOLUTE 0.5 Th/cmm (0.3-1.0); NEUTROPHILE ABSOLUTE 4.5 Th/cmm (1.8-8.0); PLATELET COUNT 216 Th/cmm (150-400); RED BLOOD COUNT 4.16 Mil/cmm (3.80-5.10); RED CELL DISTRIBUTION WIDTH 14.3 % (11.5-20.0)
[2018-03-30 09:09] LABS: INR 0.96 (0.5-1.4)
[2018-03-30 09:14] LABS: ALB/GLOB RATIO 1.9 (1.0-1.8); ALBUMIN 4.4 gm/dL (3.7-5.3); ALKALINE PHOSPHATASE 49 U/L (34-104); ANION GAP 10.3 (7.0-16.0); BILIRUBIN,TOTAL 0.7 mg/dL (0.3-1.0); BUN - UREA NITROGEN 19 mg/dL (7-25); CARBON DIOXIDE 25.2 mEq/L (21.0-31.0); CHLORIDE 104 mEq/L (98-107); CREATININE - SERUM 0.8 mg/dL (0.6-1.2); GFR AFRICAN-AMERICAN > 60.0 ml/min (>90); GFR NON AFRICAN-AMERICAN > 60.0 ml/min; GLUCOSE 107 mg/dL (70-105); POTASSIUM SERUM 3.5 mEq/L (3.5-5.1); SGOT 21 U/L (13-39); SGPT/ALT 19 U/L (7-52); SODIUM SERUM 136 mEq/L (136-145); TOTAL PROTEIN,SERUM 6.7 gm/dL (6.0-8.3)
== END 2018-03-30 09:17 | disposition home or self-care (01) ==
LOC: LAB 08:01
DX: E27.9 Disorder of adrenal gland, unspecified (principal); E26.9 Hyperaldosteronism, unspecified; R00.2 Palpitations; E34.1 Other hypersecretion of intestinal hormones
CPT/HCPCS: 36415-UA; 80053-TC; 81025-TC; 85025-TC; 85610-TC

== ENCOUNTER 2018-04-14 12:37 | Outpatient (CLI) | payer OTHER ==
[2018-04-14 13:16] LABS: ANION GAP 11.2 (7.0-16.0); BUN - UREA NITROGEN 28 mg/dL (7-25); CALCIUM SERUM 9.7 mg/dL (8.6-10.3); CARBON DIOXIDE 23.1 mEq/L (21.0-31.0); CHLORIDE 99 mEq/L (98-107); CREATININE - SERUM 1.1 mg/dL (0.6-1.2); GFR AFRICAN-AMERICAN > 60.0 ml/min (>90); GFR NON AFRICAN-AMERICAN 55.4 ml/min; GLUCOSE 114 mg/dL (70-105); POTASSIUM SERUM 4.3 mEq/L (3.5-5.1); SODIUM SERUM 129 mEq/L (136-145)
== END 2018-04-14 12:58 | disposition home or self-care (01) ==
LOC: LAB 12:37
DX: E87.6 Hypokalemia (principal)
CPT/HCPCS: 36415-UA; 80048-TC

== ENCOUNTER 2018-07-25 08:04 | Outpatient (CLI) | payer OTHER ==
[2018-07-25 09:22] LABS: % BASOPHILS 0.4 % (0.0-2.0); % EOSINOPHILS 3.7 % (0.0-5.0); % LYMPHOCYTES 31.1 % (20.0-50.0); % NEUTROPHILS 58.8 % (40.0-80.0); EOSINOPHILE ABSOLUTE 0.2 Th/cmm (0.1-0.4); HEMATOCRIT 34.4 % (41.0-60); HEMOGLOBIN 11.8 gm/dL (12-16); MEAN CELL VOLUME 88.4 fl (81-100); MEAN CORPUSCULAR HEMOGLOBIN 30.4 pg (27.0-31.0); MEAN CORPUSCULAR HGB CONC 34.4 pg (28.0-36.0); MEAN PLATELET VOLUME 7.4 fl; MONOCYTE ABSOLUTE 0.4 Th/cmm (0.3-1.0); NEUTROPHILE ABSOLUTE 3.7 Th/cmm (1.8-8.0); PLATELET COUNT 234 Th/cmm (150-400); RED BLOOD COUNT 3.89 Mil/cmm (3.80-5.10); RED CELL DISTRIBUTION WIDTH 13.7 % (11.5-20.0); WHITE BLOOD COUNT 6.3 Th/cmm (4.8-10.8)
[2018-07-25 09:46] LABS: ALB/GLOB RATIO 1.6 (1.0-1.8); ALBUMIN 4.4 gm/dL (3.7-5.3); ALKALINE PHOSPHATASE 72 U/L (34-104); ANION GAP 11.5 (7.0-16.0); BILIRUBIN,TOTAL 0.5 mg/dL (0.3-1.0); BUN - UREA NITROGEN 23 mg/dL (7-25); CALCIUM SERUM 9.2 mg/dL (8.6-10.3); CARBON DIOXIDE 25.4 mEq/L (21.0-31.0); CHLORIDE 101 mEq/L (98-107); CHOLESTEROL 181 mg/dL (<200); CREATININE - SERUM 1.1 mg/dL (0.6-1.2); GFR AFRICAN-AMERICAN > 60.0 ml/min (>90); GFR NON AFRICAN-AMERICAN 55.4 ml/min; GLUCOSE 100 mg/dL (70-105); HDL -HIGH DENSITY LIPOPROTEIN 55 mg/dL (23-92); PHOSPHOROUS 3.5 mg/dL (2.5-5.0); POTASSIUM SERUM 3.9 mEq/L (3.5-5.1); SGOT 26 U/L (13-39); SGPT/ALT 23 U/L (7-52); SODIUM SERUM 134 mEq/L (136-145); TOTAL PROTEIN,SERUM 7.1 gm/dL (6.0-8.3); TRIGLYCERIDES 102 mg/dL (<150)
[2018-07-29 11:55] LABS: ESTRADIOL <6.0; TP0 - THYROID PEROXIDASE 13
[2018-07-30 09:25] LABS: OSMOLALITY, URINE 476 mOsmol/kg; PARATHYROID HORMONE INTACT 42 pg/mL (15-65); TESTOSTERONE 13.3 ng/dL
== END 2018-07-25 08:15 | disposition home or self-care (01) ==
LOC: LAB 08:04
PROVIDERS: ATTEND Internal Medicine
DX: N84.0 Polyp of corpus uteri (principal); E89.0 Postprocedural hypothyroidism; Z78.0 Asymptomatic menopausal state
CPT/HCPCS: 36415-UA; 80053-TC; 80061-TC; 82306-90; 82330-90; 82607-90; 82670-90; 83001-90; 83935-90; 83970-90; 84100-TC; 84144-90; 84402-90; 84403-90; 84436-TC; 84443-TC; 84480-90; 85025-TC; 86376-90

== ENCOUNTER 2018-07-25 15:39 | Outpatient (CLI) | payer OTHER ==
--- NOTE | 2018-07-26 10:21 | Diagnostic Imaging Report ---
Some: Pelvic ultrasound HISTORY: Fibroids. Findings: Real-time ultrasound summation of pelvis was performed multiple planes utilizing color Doppler technique. The study is limited due to large amount of intra-abdominal bowel gas. The study demonstrates normal echogenicity uterus measuring 7.6 x 3.6 x 3.5 cm diameter. Endometrial thickness 9 mm. Left ovary is not seen. Right ovary is normal measuring 2.8 x 1.8 x 2.8 cm diameter. There is evidence of small Nabothian cyst in the lower cervical area. Small submucosal fibroid mass in the lower uterine segment measuring 1.8 cm appreciated. No free fluid is noted in cul-de-sac. IMPRESSION: 1. Nonvisualization of left ovary. 2. Question of small 1.8 cm fibroid nodule in the lower uterine segment.
== END 2018-07-25 15:50 | disposition home or self-care (01) ==
LOC: RAD 15:39
PROVIDERS: ATTEND Internal Medicine
DX: N88.8 Other specified noninflammatory disorders of cervix uteri (principal); Z78.0 Asymptomatic menopausal state
CPT/HCPCS: 76856-TC

== ENCOUNTER 2019-01-03 08:05 | Outpatient (CLI) | payer OTHER ==
[2019-01-03 08:48] LABS: ANION GAP 12.7 (7.0-16.0); BUN - UREA NITROGEN 23 mg/dL (7-25); CALCIUM SERUM 9.3 mg/dL (8.6-10.3); CARBON DIOXIDE 21.5 mEq/L (21.0-31.0); CHLORIDE 105 mEq/L (98-107); GFR AFRICAN-AMERICAN > 60.0 ml/min (>90); GFR NON AFRICAN-AMERICAN > 60.0 ml/min; GLUCOSE 104 mg/dL (70-105); POTASSIUM SERUM 4.2 mEq/L (3.5-5.1); SODIUM SERUM 135 mEq/L (136-145)
[2019-01-04 12:58] LABS: ESTRADIOL 69.6
== END 2019-01-03 09:28 | disposition home or self-care (01) ==
LOC: LAB 08:05
PROVIDERS: ATTEND Internal Medicine
DX: N95.1 Menopausal and female climacteric states (principal)
CPT/HCPCS: 36415-UA; 80048-TC; 82670-90; 83001-90; 84402-90; 84403-90

== ENCOUNTER 2019-02-15 12:15 | Outpatient (CLI) | payer OTHER ==
--- NOTE | 2019-02-16 09:22 | Diagnostic Imaging Report ---
Bilateral breast ultrasound HISTORY: Pain Sonographic sector images were obtained through the quadrants of both breasts. The exam of the right breast is unremarkable. No abnormal masses. No solid or cystic lesions. The left breast appears normal. No abnormal masses. IMPRESSION: Negative examination. No abnormal masses or other significant abnormalities.
== END 2019-02-15 13:14 ==
LOC: RAD 12:15
PROVIDERS: ATTEND Internal Medicine
DX: N64.4 Mastodynia (principal)
CPT/HCPCS: 76641